=== PATIENT | male | born 1995 | race Caucasian/White ===

== ENCOUNTER 2021-04-23 11:38 | Day surgery (SDC) | payer BC, SELFPAY ==
[2021-04-18 10:55] VITALS: BMI 23.8
[2021-04-23 12:31] LABS: COVID19 -Nasal RAPID Negative (Negative)
[2021-04-23 13:23] VITALS: BP 111/69; PULSE 51; RESP 16; TEMP 36.7; O2SAT 100; BMI 24.3
--- NOTE | 2021-04-23 13:29 | PM.PREOP ---
Pre-operative Note Interval Note History & Physical reviewed/Exam performed by Physician: Yes Changes to H&P: No
[2021-04-23] MEDS: LACTATED RINGERS 1,000 ML 100 ML IV (13:47)
[2021-04-23] MEDS: CEFAZOLIN 1 GM VIAL 2 GM IV (14:05)
--- NOTE | 2021-04-23 14:11 | SUR.OPER ---
Supine on padded OR bed, head on pillow, arms secured on padded arm boards at <90 degrees abduction, legs uncrossed, safety belt at thigh, tape over blanket over lower legs.
[2021-04-23] MEDS: BUPIVACAINE 0.25% (PF) VIAL 30 ML INJ (14:17)
[2021-04-23 15:02] VITALS: BP 118/53; PULSE 74; RESP 20; TEMP 36.3; O2SAT 99
[2021-04-23 15:07] VITALS: BP 124/48; PULSE 68; RESP 12; O2SAT 99
--- NOTE | 2021-04-23 15:10 | PM.OP.1 ---
Operative Date/Time/Diagnoses Date of procedure: 04/23/21 Time of procedure: 15:10 Pre-op diagnosis: RIGHT REDUCIBLE INGUINAL HERNIA Post-op diagnosis: same Procedure & Clinicians Procedure: Open right inguinal hernia repair with mesh Same procedure as scheduled: Yes Indications: reducible right inguinal hernia Surgeon: Art Lowery Click Yes if Unassisted: Yes Anesthesia Type: General Operative Notes Findings: direct floor defect. No indirect hernia Specimen(s): none sent Estimated Blood Loss (mL): 10 Procedure in detail: The patient was placed supine on the table and bilateral lower extremity compression devices were applied. Anesthesia was induced they were intubated with an LMA and received 2g of Ancef. A time-out was performed. They were prepped and draped in sterile fashion. The right external inguinal ring and the anterior superior iliac crest were identified and marked. 1 finger breath above the inguinal ligament the skin was infiltrated with 0.25% bupivacaine. The skin incision was made here and the subcutaneous tissues were divided with electrocautery exposing the external oblique aponeurosis which was then opened along the direction of its fibers. Using blunt dissection the internal oblique aporneurosis was from the external oblique upper leaflet to identify the iliohypogastric nerve. Using a kittner the cord was carefully dissected away from the inguinal canal adjacent to the pubic tubercle. The cord including the vas deferens, testicular bloody supply, ilioguinal and genital nerve were encircled with a [place] drain. A moderate size direct floor defect was identified. A plug of mesh was placed into the defect and it was secured to the inguinal ligament and the internal oblique. The internal oblique aporneuorsis was approximated to the inguinal ligament over the plug with Ethibond suture to reapproximate the floor. The cremasteric fibers surrounding the cord were divided using electrocautery adjacent to the internal ring.. The vas deferens and the testicular vessels were preserved and protected. There was a small indirect hernia on the anterior medial aspect of the cord which was skeletonized away from the vas deferens and testicular blood supply. There was no evidence of an indirect inguinal hernia. I selected a 7x 15 cm lightweight Pro Loop hernia mesh. The inferior medial aspect of the mesh was anchored to insertion of the rectus muscle to the pubic tubercle such that there was approximately 2 cm of tubercle overlap with Ethibond and then was run continuously along the inferior edge of the mesh to the shelving edge of the inguinal ligament. Interrupted 3 0 Vicryl suture was used to anchor the superior aspect of the mesh to the conjoined tendon in several places. The tails were then reapproximated loosely around the spermatic cord. The tails of the mesh were then tucked under the external oblique aponeurosis. The repair was checked for hemostasis. The wound was irrigated with sterile saline. The external oblique aponeurosis was reapproximated in a running fashion using 3 0 Vicryl. The subcutaneous tissues were reapproximated with 3 0 Vicryl skin closed with 4 0 Monocryl followed by the application of Dermabond. At the end of the operation I ensured that both testicles were within the scrotum. The sponge instrument count at the end operation was correct. The patient emerged from anesthesia was extubated and transferred to the postoperative care unit in stable condition. A total of 30 ml of of 0.25% bupivicaine was used to infiltrate the skin. Complications: none Post-operative Condition: stable Disposition: same day surgery
[2021-04-23 15:12] VITALS: BP 133/52; PULSE 68; RESP 12; O2SAT 100
[2021-04-23 15:17] VITALS: BP 125/62; PULSE 69; RESP 9; O2SAT 99
[2021-04-23 15:26] VITALS: BP 116/44; PULSE 71; RESP 14; TEMP 36.3; O2SAT 100
[2021-04-23] MEDS: OXYCODONE IR 5 MG TABLET PO (15:30)
== END 2021-04-23 16:07 | disposition home or self-care (01) ==
PROVIDERS: PCP Family Medicine; Referring Provider Surgery; Visit Provider Surgery
PROC: (CPT 49505; principal; 2021-04-23 13:45)
DX: K40.90 Unilateral inguinal hernia, without obstruction or gangrene, not specified as recurrent (principal); Z20.822 Contact with and (suspected) exposure to COVID-19; F17.210 Nicotine dependence, cigarettes, uncomplicated
CPT/HCPCS: 49505; 87635; C1781; J0690; J1100; J1885; J2405; J2704; J3010